=== PATIENT | male | born 1985 | race Caucasian/White ===

== ENCOUNTER 2019-05-02 19:56 | Emergency (ER) | payer OTHER ==
[~2019-05-02] VITALS: Ht 175.3 cm; Wt 96.3 kg
[2019-05-02 20:07] VITALS: Ht 175.3 cm; Wt 96.3 kg
[2019-05-03 00:05] VITALS: BP 126/70
== END 2019-05-03 00:05 | disposition home or self-care (01) ==
LOC: ED 19:56
DX: S01.512A Laceration without foreign body of oral cavity, initial encounter (principal); S53.401A Unspecified sprain of right elbow, initial encounter; S83.91XA Sprain of unspecified site of right knee, initial encounter; Y04.8XXA Assault by other bodily force, initial encounter; Y93.89 Activity, other specified; Y92.89 Other specified places as the place of occurrence of the external cause; Y99.8 Other external cause status